=== PATIENT | male | born 1995 | race African-American/Black ===

== ENCOUNTER 2019-11-21 01:38 | Emergency (ER) | payer OTHER ==
[~2019-11-21] VITALS: Ht 180.3 cm; Wt 104.5 kg
[2019-11-21] MEDS ORDERED: LIDOCAINE W/EPINEPHRINE 1% 20ML VIAL As Ordered ONE (02:14)
[2019-11-21] MEDS ORDERED: LIDOCAINE W/EPINEPHRINE 1% 20ML VIAL SC ONE (02:15)
[2019-11-21] MEDS ORDERED: AUGM875T28 PO (02:45)
[2019-11-21] MEDS ORDERED: AUGMENTIN 875 MG TAB PO ONE (02:45)
[2019-11-21 03:14] VITALS: BP 139/65
== END 2019-11-21 03:05 | disposition home or self-care (01) ==
LOC: M ED 01:38
DX: S61.452A Open bite of left hand, initial encounter (principal); W54.0XXA Bitten by dog, initial encounter; Y92.009 Unspecified place in unspecified non-institutional (private) residence as the place of occurrence of the external cause; Y93.89 Activity, other specified; Y99.8 Other external cause status